=== PATIENT | female | born 1995 | race American Indian/Alaskan Native ===

== ENCOUNTER 2019-04-17 09:57 | Emergency (ER) | payer SELFPAY ==
[2019-04-17 10:13] VITALS: BP 144/75
[2019-04-17] MEDS ORDERED: BOOSTRIX IM ONE (11:09)
--- NOTE | 2019-04-17 11:12 | Emergency Department Report ---
- General Chief complaint: Skin/Abscess/Foreign Body Stated complaint: STEPPED IN GLASS Time Seen by Provider: 04/17/19 10:32 Source: patient, EMS Mode of arrival: Stretcher Limitations: No Limitations - History of Present Illness Initial comments: 23-year-old female presents to ED after stepping on a piece of glass. Patient states she and EMS were both unable to get the glass out of her right heel. Tetanus not up-to-date. complaint: foreign body (piece of glass) -: This morning Tetanus Up to Date: no Location: R foot Severity: mild Quality: sharp Improves with: immobilization Worsens with: palpation Associated symptoms: denies other symptoms - Related Data Previous Rx's Medication Instructions Recorded Last Taken Type Naproxen [Naprosyn] 500 mg PO BID #20 tablet 04/17/19 Unknown Rx Sulfamethoxazole/Trimethoprim 1 each PO BID #10 tablet 04/17/19 Unknown Rx [Bactrim DS TAB] Allergies Allergy/AdvReac Type Severity Reaction Status Date / Time amoxicillin Allergy Unknown Verified 04/17/19 10:13 coconut oil Allergy Unknown Verified 04/17/19 10:13 Abscess Boil HPI - HPI Chief Complaint: Skin/Abscess/Foreign Body Stated Complaint: STEPPED IN GLASS Time Seen by Provider: 04/17/19 10:32 Home Medications: Previous Rx's Medication Instructions Recorded Last Taken Type Naproxen [Naprosyn] 500 mg PO BID #20 tablet 04/17/19 Unknown Rx Sulfamethoxazole/Trimethoprim 1 each PO BID #10 tablet 04/17/19 Unknown Rx [Bactrim DS TAB] Allergies/Adverse Reactions: Allergies Allergy/AdvReac Type Severity Reaction Status Date / Time amoxicillin Allergy Unknown Verified 04/17/19 10:13 coconut oil Allergy Unknown Verified 04/17/19 10:13 ED Review of Systems ROS: Stated complaint: STEPPED IN GLASS Other details as noted in HPI Comment: All other systems reviewed and negative Skin: as per HPI ED Past Medical Hx - Past Medical History Previous Medical History?: No - Surgical History Past Surgical History?: No - Social History Smoking Status: Never Smoker Substance Use Type: None - Medications Home Medications: Home Medications Medication Instructions Recorded Confirmed Last Taken Type Naproxen [Naprosyn] 500 mg PO BID #20 tablet 04/17/19 Unknown Rx Sulfamethoxazole/Trimethoprim 1 each PO BID #10 tablet 04/17/19 Unknown Rx [Bactrim DS TAB] ED Physical Exam - General Limitations: No Limitations General appearance: alert, in no apparent distress, obese - Head Head exam: Present: atraumatic, normocephalic - Eye Eye exam: Present: normal appearance - ENT ENT exam: Present: mucous membranes moist - Neck Neck exam: Present: normal inspection - Respiratory Respiratory exam: Present: normal lung sounds bilaterally. Absent: respiratory distress - Cardiovascular Cardiovascular Exam: Present: regular rate, normal rhythm - GI/Abdominal GI/Abdominal exam: Absent: distended - Extremities Exam Extremities exam: Present: normal inspection - Neurological Exam Neurological exam: Present: alert, oriented X3 - Psychiatric Psychiatric exam: Present: normal affect, normal mood - Skin Skin exam: Present: warm, dry, other (small, pinpoint puncture in heel of right foot, tender, no active bleeding, no foreign body protruding from surface) ED Course Vital Signs 04/17/19 09:57 Temperature 98.5 F Pulse Rate 76 Respiratory 18 Rate Blood Pressure 144/75 [Left] O2 Sat by Pulse 98 Oximetry ED Medical Decision Making - Medical Decision Making Had discussion w/ pt regarding removal of glass. Advised against it as making incision for such a small piece of glass could lead to infection and worsening pain. Advised that body will eventually form callus and foreign body will work it's way to the surface. At that time, removal would be easier. Advised to keep area clean. Tetanus given here in ED. Rx given for bactrim for prophylaxis. Return precautions given. Critical care attestation.: If time is entered above; I have spent that time in minutes in the direct care of this critically ill patient, excluding procedure time. ED Disposition Clinical Impression: Foreign body in foot, right Disposition: DC-01 TO HOME OR SELFCARE Is pt being admited?: No Condition: Stable Instructions: Soft Tissue Foreign Body (ED) Prescriptions: Sulfamethoxazole/Trimethoprim [Bactrim DS TAB] 1 each PO BID #10 tablet Naproxen [Naprosyn] 500 mg PO BID #20 tablet Referrals: ROBIN RAINEY MD [Primary Care Provider] - 3-5 Days Forms: Work/School Release Form(ED) Time of Disposition: 11:11
== END 2019-04-17 12:10 | disposition home or self-care (01) ==
LOC: ED 09:57
DX: M79.5 Residual foreign body in soft tissue (principal); Z91.09 Other allergy status, other than to drugs and biological substances; Z88.1 Allergy status to other antibiotic agents
CPT/HCPCS: 90471; 90715; 99283

== ENCOUNTER 2019-07-24 21:59 | Emergency (ER) | payer SELFPAY ==
--- NOTE | 2019-07-24 22:33 | Emergency Department Report ---
Blank Doc - Documentation Documentation: 23-year-old female that presents with SOB and mid-back pain. This initial assessment/diagnostic orders/clinical plan/treatment(s) is/are subject to change based on patient's health status, clinical progression and re- assessment by fellow clinical providers in the ED. Further treatment and workup at subsequent clinical providers discretion. Patient/guardians urged not to elope from the ED as their condition may be serious if not clinically assessed and managed. Initial orders include: 1- Patient sent to [facility] for further evaluation and treatment 2- labs 3- CXR 4- EKG
[2019-07-24 22:37] VITALS: BP 151/92
[2019-07-24 23:17] LABS: Basophils # (Auto) 0.1 K/mm3 (0.0-0.1); Eosinophils # (Auto) 0.2 K/mm3 (0.0-0.4); Eosinophils % (Auto) 1.4 % (0.0-4.3); Hematocrit 38.7 % (30.3-42.9); Hemoglobin 12.8 gm/dl (10.1-14.3); Lymphocytes # (Auto) 3.2 K/mm3 (1.2-5.4); Lymphocytes % (Auto) 27.3 % (13.4-35.0); Mean Corpuscular HGB Conc 33 % (30-34); Mean Corpuscular Volume 86 fl (79-97); Monocytes # (Auto) 0.8 K/mm3 (0.0-0.8); Monocytes % (Auto) 7.3 % (0.0-7.3); Platelet Count 385 K/mm3 (140-440); Red Blood Count 4.51 M/mm3 (3.65-5.03); Red Cell Distribution Width 13.3 % (13.2-15.2)
[2019-07-24 23:28] LABS: INR 1.02 (0.87-1.13)
[2019-07-24 23:29] LABS: Partial Thromboplastin Time 34.4 Sec. (24.2-36.6)
[2019-07-24 23:34] LABS: BUN/Creatinine Ratio 12; Blood Urea Nitrogen 7 mg/dL (7-17); Calcium 8.9 mg/dL (8.4-10.2); Hemolysis Index 6
--- NOTE | 2019-07-25 00:47 | XRay Report ---
CHEST 2 VIEWS 0005 INDICATION / CLINICAL INFORMATION: Chest Pain COMPARISON: None available. FINDINGS: SUPPORT DEVICES: None. HEART / MEDIASTINUM: No significant abnormality. LUNGS / PLEURA: Artifact is seen for the patient's hair in the upper lung wagoner. Lung wagoner are hilario ar Trace. No pleural effusions are seen. No pneumothorax. ADDITIONAL FINDINGS: No significant additional findings. IMPRESSION: No significant acute abnormality Signer Name: Zhou Trimbel MD Signed: 07/25/2019 12:42 AM Workstation Name: [id number]
--- NOTE | 2019-07-25 00:55 | Emergency Department Report ---
Vomiting/Diarrhea - HPI Chief Complaint: Back Pain/Injury Stated Complaint: BACK PAIN & ANA Time Seen by Provider: 07/24/19 22:26 Severity: mild Nausea/Vomiting Severity: Mild Diarrhea Severity: Mild Symptoms: Yes Watery Diarrhea, Yes Able to Tolerate Fluids, No Bloody diarrhea, No Fever, No Recent Unusual Foods, No Recent Untreated Water, No Recent use of Antibiotics, No Family w/ Similar Symptoms, No Contacts w/ Similar Symptoms, No Rash, No Hematuria, No Recent URI Symptoms Other History: Patient is a 23-year-old female that comes to the ER today complaining of diarrhea for over a month. She has seen her primary care doctor who told her it was a virus and it would go away. However, today she continued to have diarrhea so her grandmother told her to come to the emergency room. She has been in the ER now for several hours and has had no nausea vomiting or diarrhea. She is ambulatory without fever and nontoxic. Patient denies any back pain chest pain or shortness of breath on my exam. ED Review of Systems ROS: Stated complaint: BACK PAIN & ANA Other details as noted in HPI Comment: All other systems reviewed and negative ED Past Medical Hx - Past Medical History Previous Medical History?: Yes Hx Asthma: Yes Additional medical history: OBESE - Surgical History Past Surgical History?: No - Social History Smoking Status: Never Smoker Substance Use Type: None - Medications Home Medications: Home Medications Medication Instructions Recorded Confirmed Last Taken Type Naproxen [Naprosyn] 500 mg PO BID #20 tablet 04/17/19 Unknown Rx Sulfamethoxazole/Trimethoprim 1 each PO BID #10 tablet 04/17/19 Unknown Rx [Bactrim DS TAB] Vomiting Diarrhea Exam - Exam General: Vital signs noted. No distress. Alert and acting appropriately. HEENT: Yes Moist Mucous Membranes, No Pharyngeal Erythema, No Pharyngeal Exudates, No Rhinorrhea Neck: No Adenopathy, No Rigidity Lungs: Yes Clear Lung Sounds, Yes Good Air Exchange, No Wheezes Heart exam: Regular: Yes, Murmur: No, Tachycardia: No Abdomen: Tenderness: No, Peritoneal Signs: No, Distention: No Skin exam: Rash: No, Edema: No Neurologic: Alert and oriented, no deficits. Musculoskeletal: Unremarkable. ED Course Vital Signs 07/24/19 22:33 Temperature 98.1 F Pulse Rate 58 L Respiratory 20 Rate Blood Pressure 151/92 O2 Sat by Pulse 96 Oximetry ED Medical Decision Making - Lab Data Result diagrams: 07/24/19 22:46 07/24/19 22:46 - Radiology Data Radiology results: report reviewed, image reviewed - Medical Decision Making Labs 07/24/19 07/24/19 07/24/19 22:46 22:46 22:46 WBC 11.7 H RBC 4.51 Hgb 12.8 Hct 38.7 MCV 86 MCH 28 MCHC 33 RDW 13.3 Plt Count 385 Lymph % (Auto) 27.3 [place] % (Auto) 7.3 Eos % (Auto) 1.4 Baso % (Auto) 1.0 Lymph # 3.2 [place] # 0.8 Eos # 0.2 Baso # 0.1 Seg Neutrophils % 63.0 Seg Neutrophils # 7.4 PT 13.1 INR 1.02 APTT 34.4 D-Dimer 138.17 Sodium 139 Potassium 3.7 Chloride 102.0 Carbon Dioxide 26 Anion Gap 15 BUN 7 Creatinine 0.6 L Estimated GFR > 60 BUN/Creatinine Ratio 12 Glucose 99 Calcium 8.9 Troponin T < 0.010 HCG, Qual 07/24/19 22:46 WBC RBC Hgb Hct MCV MCH MCHC RDW Plt Count Lymph % (Auto) [place] % (Auto) Eos % (Auto) Baso % (Auto) Lymph # [place] # Eos # Baso # Seg Neutrophils % Seg Neutrophils # PT INR APTT D-Dimer Sodium Potassium Chloride Carbon Dioxide Anion Gap BUN Creatinine Estimated GFR BUN/Creatinine Ratio Glucose Calcium Troponin T HCG, Qual Negative Vital Signs 07/24/19 22:33 Temperature 98.1 F Pulse Rate 58 L Respiratory 20 Rate Blood Pressure 151/92 O2 Sat by Pulse 96 Oximetry LABS REVIEWED WITH PT PREG NEG VS ARE NORMAL WITHOUT TACHYCARDIA OR HYPOTENSION PT'S DIARRHEA IS NOW OVER A MONTH IN CHRONICITY I'VE DISCUSSED WITH HER SEEING GI MD SHE VERBALIZES UNDERSTANDING AMBULATORY NONTOXIC TAKING PO NO FEVER DC HOME WITH FAMILY - Differential Diagnosis A/C DIARRHEA Critical care attestation.: If time is entered above; I have spent that time in minutes in the direct care of this critically ill patient, excluding procedure time. ED Disposition Clinical Impression: Diarrhea Disposition: DC-01 TO HOME OR SELFCARE Is pt being admited?: No Does the pt Need Aspirin: No Condition: Stable Instructions: Loperamide (By mouth), Acute Diarrhea (ED), Chronic Diarrhea (ED) Additional Instructions: STAY WELL HYDRATED CALL GI MD IN AM FOR APPOINTMENT REFERRAL BELOW Referrals: CARLI DAVIS MD [Staff Physician] - 3-5 Days THEA NORRIS MD [Staff Physician] - 3-5 Days GUY RUSSELL MD [Staff Physician] - 3-5 Days Time of Disposition: 00:54
--- NOTE | 2019-07-25 01:12 | Emergency Department Report ---
Vomiting/Diarrhea - HPI Chief Complaint: Back Pain/Injury Stated Complaint: BACK PAIN & ANA Time Seen by Provider: 07/24/19 22:26 Duration: 3 Days Symptoms: No Contacts w/ Similar Symptoms, No Rash, No Hematuria, No Recent URI Symptoms Other History: 23 YO AA FEMALE WITH SOB AND WHEEZING OFF AND ON FOR A COUPLE DAYS. ED Review of Systems ROS: Stated complaint: BACK PAIN & ANA Other details as noted in HPI Comment: All other systems reviewed and negative ED Past Medical Hx - Past Medical History Previous Medical History?: Yes Hx Asthma: Yes Additional medical history: OBESE - Surgical History Past Surgical History?: No - Family History Family history: no significant - Social History Smoking Status: Never Smoker Substance Use Type: None - Medications Home Medications: Home Medications Medication Instructions Recorded Confirmed Last Taken Type Albuterol Sulfate [Proair 90 mcg IH QID PRN #1 aer.pow.ba 07/25/19 Unknown Rx Respiclick] Cetirizine HCl [ZyrTEC] 10 mg PO DAILY #30 capsule 07/25/19 Unknown Rx Fluticasone [Flonase] 1 spray NS QDAY #1 bottle 07/25/19 Unknown Rx predniSONE [Deltasone] 20 mg PO DAILY #5 tablet 07/25/19 Unknown Rx Vomiting Diarrhea Exam - Exam General: Vital signs noted. No distress. Alert and acting appropriately. HEENT: Yes Moist Mucous Membranes, No Pharyngeal Erythema, No Pharyngeal Exudates, No Rhinorrhea, No Conjuctival Injection, No Frontal Tenderness, No Maxillary Tenderness Neck: No Adenopathy, No Rigidity Lungs: Yes Clear Lung Sounds, Yes Good Air Exchange, Yes Wheezes, No Stridor, No Cough, No Nasal Flaring Heart exam: Regular: Yes Abdomen: Tenderness: No Skin exam: Rash: No Neurologic: Alert and oriented, no deficits. Musculoskeletal: Unremarkable. ED Course Vital Signs 07/24/19 22:33 Temperature 98.1 F Pulse Rate 58 L Respiratory 20 Rate Blood Pressure 151/92 O2 Sat by Pulse 96 Oximetry ED Medical Decision Making - Lab Data Result diagrams: 07/24/19 22:46 07/24/19 22:46 - Radiology Data Radiology results: report reviewed, image reviewed - Medical Decision Making Labs 07/24/19 07/24/19 07/24/19 22:46 22:46 22:46 WBC 11.7 H RBC 4.51 Hgb 12.8 Hct 38.7 MCV 86 MCH 28 MCHC 33 RDW 13.3 Plt Count 385 Lymph % (Auto) 27.3 [place] % (Auto) 7.3 Eos % (Auto) 1.4 Baso % (Auto) 1.0 Lymph # 3.2 [place] # 0.8 Eos # 0.2 Baso # 0.1 Seg Neutrophils % 63.0 Seg Neutrophils # 7.4 PT 13.1 INR 1.02 APTT 34.4 D-Dimer 138.17 Sodium 139 Potassium 3.7 Chloride 102.0 Carbon Dioxide 26 Anion Gap 15 BUN 7 Creatinine 0.6 L Estimated GFR > 60 BUN/Creatinine Ratio 12 Glucose 99 Calcium 8.9 Troponin T < 0.010 HCG, Qual 07/24/19 22:46 WBC RBC Hgb Hct MCV MCH MCHC RDW Plt Count Lymph % (Auto) [place] % (Auto) Eos % (Auto) Baso % (Auto) Lymph # [place] # Eos # Baso # Seg Neutrophils % Seg Neutrophils # PT INR APTT D-Dimer Sodium Potassium Chloride Carbon Dioxide Anion Gap BUN Creatinine Estimated GFR BUN/Creatinine Ratio Glucose Calcium Troponin T HCG, Qual Negative Vital Signs 07/24/19 22:33 Temperature 98.1 F Pulse Rate 58 L Respiratory 20 Rate Blood Pressure 151/92 O2 Sat by Pulse 96 Oximetry DUONEB AND PREDNISONE IN ER NO FEVER NO SPUTUM XRAY NEG DC HOME WITH DC PLAN OF CARE AND PCP FOLLOW UP - Differential Diagnosis ASTHMA AE W OR WO INFECTION Critical care attestation.: If time is entered above; I have spent that time in minutes in the direct care of this critically ill patient, excluding procedure time. ED Disposition Clinical Impression: Asthma with acute exacerbation Disposition: DC-01 TO HOME OR SELFCARE Is pt being admited?: No Does the pt Need Aspirin: No Condition: Stable Instructions: Asthma (ED) Additional Instructions: STAY WELL HYDRATED MEDS ORDERED TODAY Prescriptions: predniSONE [Deltasone] 20 mg PO DAILY #5 tablet Fluticasone [Flonase] 1 spray NS QDAY #1 bottle Albuterol Sulfate [Proair Respiclick] 90 mcg IH QID PRN #1 aer.pow.ba PRN Reason: Wheezing Cetirizine HCl [ZyrTEC] 10 mg PO DAILY #30 capsule Referrals: LINDA ESCOBAR MD [Staff Physician] - 3-5 Days Time of Disposition: 01:24
[2019-07-25] MEDS ORDERED: DELTASONE PO ONE (01:22)
[2019-07-25] MEDS ORDERED: PROVENTIL IH ONE (01:22)
== END 2019-07-25 02:30 | disposition home or self-care (01) ==
LOC: ED 21:59
DX: J45.901 Unspecified asthma with (acute) exacerbation (principal); Z88.1 Allergy status to other antibiotic agents; Z91.018 Allergy to other foods; Z79.899 Other long term (current) drug therapy
CPT/HCPCS: 36415; 71046; 80048; 84484; 84703; 85025; 85379; 85610; 85730; 94640; 99284; J7512

== ENCOUNTER 2019-10-15 13:12 | Emergency (ER) | payer SELFPAY ==
--- NOTE | 2019-10-15 13:53 | Event Note ---
ED Screening Note Date of service: 10/15/19 Time: 13:52 ED Screening Note: 23 y o female presents with throat pain with intermittent coughing causing cp. pmh: asthma 10/02/19 This initial assessment/diagnostic orders/clinical plan/treatment(s) is/are subject to change based on patients health status, clinical progression and re- assessment by fellow clinical providers in the ED. Further treatment and workup at subsequent clinical providers discretion. Patient/guardian urged not to elope from the ED as their condition may be serious if not clinically assessed and managed. Initial orders include: rapid strep/ cxr
--- NOTE | 2019-10-15 16:37 | XRay Report ---
CHEST PA AND LATERAL VIEWS INDICATION: cough,fever. COMPARISON: 07/25/2019. FINDINGS: Support devices: None. Heart: Within normal limits. Lungs/Pleura: No acute pulmonary or pleural findings. IMPRESSION: 1. No significant abnormality. Signer Name: Macario Roy MD Signed: 10/15/2019 4:33 PM Workstation Name: [id number]
--- NOTE | 2019-10-15 17:05 | Emergency Department Report ---
ED General Adult HPI - General Chief complaint: Upper Respiratory Infection Stated complaint: FLU SX Time Seen by Provider: 10/15/19 16:22 Source: patient Mode of arrival: Ambulatory Limitations: No Limitations - History of Present Illness Initial comments: [id number] -[place] female patient with history of asthma presents with complaints of cough, congestion, and sore throat for the past 5 days. She admits to intermittent headaches, body aches, and subjective fever and chills. Patient states cough is productive of green and brown-appearing mucus. She denies any history of pneumonia. She sates she had increased use of her albuterol inhaler without relief. She denies any hemoptysis, pain/swelling, history of DVT/PE, oral contraceptives, or recent long travel. states symptoms are worsening despite using OTC medications for cold and flu. -: Sudden - Related Data Previous Rx's Medication Instructions Recorded Last Taken Type Albuterol Sulfate [Proair 90 mcg IH QID PRN #1 aer.pow.ba 07/25/19 Unknown Rx Respiclick] Cetirizine HCl [ZyrTEC] 10 mg PO DAILY #30 capsule 07/25/19 Unknown Rx Fluticasone [Flonase] 1 spray NS QDAY #1 bottle 07/25/19 Unknown Rx predniSONE [Deltasone] 20 mg PO DAILY #5 tablet 07/25/19 Unknown Rx ALBUTEROL Inhaler (OR & NICU) 2 puff IH Q4H PRN #8.5 gram 10/15/19 Unknown Rx [ProAir HFA Inhaler] Azithromycin [Zithromax Z-AUSTIN] 0 mg PO DAILY 5 Days #6 tab 10/15/19 Unknown Rx Benzonatate 200 mg PO TID PRN #30 capsule 10/15/19 Unknown Rx Prednisone [predniSONE 10 mg 10 mg PO .TAPER #1 tab.ds.pk 10/15/19 Unknown Rx (6-Day Pack, 21 Tabs)] Allergies Allergy/AdvReac Type Severity Reaction Status Date / Time amoxicillin Allergy Unknown Verified 04/17/19 10:13 coconut oil Allergy Unknown Verified 04/17/19 10:13 ED Review of Systems ROS: Stated complaint: FLU SX Other details as noted in HPI Constitutional: chills, fever, malaise. denies: diaphoresis ENT: throat pain. denies: ear pain Respiratory: cough. denies: shortness of breath Cardiovascular: chest pain (with cough only) Endocrine: no symptoms reported Gastrointestinal: denies: abdominal pain, nausea, vomiting, diarrhea Musculoskeletal: denies: back pain Skin: denies: rash, lesions Neurological: headache (9's current headache). denies: weakness, paresthesias ED Past Medical Hx - Past Medical History Previous Medical History?: Yes Hx Asthma: Yes Additional medical history: OBESE - Surgical History Past Surgical History?: No - Social History Smoking Status: Never Smoker Substance Use Type: None - Medications Home Medications: Home Medications Medication Instructions Recorded Confirmed Last Taken Type Albuterol Sulfate [Proair 90 mcg IH QID PRN #1 aer.pow.ba 07/25/19 Unknown Rx Respiclick] Cetirizine HCl [ZyrTEC] 10 mg PO DAILY #30 capsule 07/25/19 Unknown Rx Fluticasone [Flonase] 1 spray NS QDAY #1 bottle 07/25/19 Unknown Rx predniSONE [Deltasone] 20 mg PO DAILY #5 tablet 07/25/19 Unknown Rx ALBUTEROL Inhaler (OR & NICU) 2 puff IH Q4H PRN #8.5 gram 10/15/19 Unknown Rx [ProAir HFA Inhaler] Azithromycin [Zithromax Z-[place]] 0 mg PO DAILY 5 Days #6 tab 10/15/19 Unknown Rx Benzonatate 200 mg PO TID PRN #30 capsule 10/15/19 Unknown Rx Prednisone [predniSONE 10 mg 10 mg PO .TAPER #1 tab.ds.pk 10/15/19 Unknown Rx (6-Day Pack, 21 Tabs)] ED Physical Exam - General Limitations: No Limitations General appearance: alert, in no apparent distress - Head Head exam: Present: atraumatic, normocephalic - Eye Eye exam: Present: normal appearance - ENT ENT exam: Present: normal orophraynx, mucous membranes moist - Neck Neck exam: Present: normal inspection. Absent: tenderness, lymphadenopathy - Respiratory Respiratory exam: Present: wheezes, rhonchi, chest wall tenderness. Absent: respiratory distress, rales - Cardiovascular Cardiovascular Exam: Present: regular rate, normal rhythm. Absent: systolic murmur, diastolic murmur, rubs, gallop - GI/Abdominal GI/Abdominal exam: Present: soft, normal bowel sounds - Extremities Exam Extremities exam: Present: normal inspection. Absent: pedal edema, calf tenderness - Back Exam Back exam: Present: normal inspection - Neurological Exam Neurological exam: Present: alert, oriented X3 - Psychiatric Psychiatric exam: Present: normal affect, normal mood - Skin Skin exam: Present: warm, dry, intact, normal color. Absent: rash ED Course Vital Signs 10/15/19 13:51 Temperature 99.1 F Pulse Rate 89 Respiratory 18 Rate Blood Pressure 130/81 O2 Sat by Pulse 100 Oximetry ED Medical Decision Making - Radiology Data Radiology results: report reviewed CHEST PA AND LATERAL VIEWS INDICATION: cough,fever. COMPARISON: 07/25/2019. FINDINGS: Support devices: None. Heart: Within normal limits. Lungs/Pleura: No acute pulmonary or pleural findings. IMPRESSION: 1. No significant abnormality. - Medical Decision Making A 3-year-old female patient here with complaints of cough, body aches, and sore throat for the past 5 days. States symptoms are worsening despite OTC medications. Patient has history of asthma and states her inhaler does not seem to be controlling her symptoms. She denies any current shortness of breath. Wheezing noted on exampatient offered nebulizer treatment and declined. Chest x-ray is negative for pneumonia. Will discharge home with treatment for asthmatic bronchitis. Recommend follow-up with primary care within 3-5 days. Discussed very strict return precautions in detail with patient who states understanding. Critical care attestation.: If time is entered above; I have spent that time in minutes in the direct care of this critically ill patient, excluding procedure time. ED Disposition Clinical Impression: Asthmatic bronchitis Qualifiers: Asthma severity: mild Asthma persistence: intermittent Asthma complication type: with acute exacerbation Qualified Code(s): J45.21 - Mild intermittent asthma with (acute) exacerbation Disposition: - TO HOME OR SELFCARE Is pt being admited?: No Condition: Stable Instructions: Acute Bronchitis (ED) Prescriptions: Benzonatate 200 mg PO TID PRN #30 capsule PRN Reason: Cough Prednisone [predniSONE 10 mg (6-Day Pack, 21 Tabs)] 10 mg PO .TAPER #1 tab.ds.pk ALBUTEROL Inhaler (OR & NICU) [ProAir HFA Inhaler] 2 puff IH Q4H PRN #8.5 gram PRN Reason: Wheezing Azithromycin [Zithromax Z-AUSTIN] 0 mg PO DAILY 5 Days #6 tab
[2019-10-15 17:44] VITALS: BP 128/81
== END 2019-10-15 17:41 | disposition home or self-care (01) ==
LOC: ED 13:12
DX: J45.21 Mild intermittent asthma with (acute) exacerbation (principal); Z79.899 Other long term (current) drug therapy; Z88.0 Allergy status to penicillin; Z91.09 Other allergy status, other than to drugs and biological substances
CPT/HCPCS: 71046; 87116; 87430

== ENCOUNTER 2021-11-07 19:17 | Emergency (ER) | payer SELFPAY ==
[2021-11-08 02:52] VITALS: BP 151/104
[2021-11-08] MEDS ORDERED: predniSONE 20 MG TAB PO ONE (03:11)
[2021-11-08] MEDS ORDERED: IPRATROPIUM/ALBUTEROL SULFATE 3 ML AMPUL.NEB IH ONE (03:11)
--- NOTE | 2021-11-08 03:56 | XRay Report ---
CHEST 2 VIEWS INDICATION / CLINICAL INFORMATION: Dyspnea, chest tightness. COMPARISON: 10/15/2019 FINDINGS: SUPPORT DEVICES: None. HEART / MEDIASTINUM: No significant abnormality. LUNGS / PLEURA: No significant pulmonary or pleural abnormality. No pneumothorax. ADDITIONAL FINDINGS: No significant additional findings. IMPRESSION: 1. No acute findings. Signer Name: Ranjan Carver DO Signed: 11/08/2021 3:51 AM Workstation Name: [id number]
--- NOTE | 2021-11-08 07:04 | Emergency Department Report ---
- General Chief Complaint: Chest Pain Stated Complaint: CHEST PAIN/SOB Source: patient Mode of arrival: Ambulatory Limitations: No Limitations - History of Present Illness Initial Comments: Patient is a 25-year-old -[place] female with a history of asthma who presented to the ED with complaint of acute onset persistent nasal and sinus congestion, persistent frontal sinus pressure and headache, sore throat, diffuse body aches and pains, persistent dry cough with wheezing and shortness of breath and pleuritic chest pain for the last 1 week, worse in the last 3 days. Patient states that she ran out of her inhaler a while ago and she was not able to use anything for shortness of breath. Patient denies dizziness, syncope, fever, chills, nausea and vomiting, diarrhea, abdominal pain, neck pain, dysuria, urinary frequency and urgency or vaginal discharge and vaginal bleeding. MD Complaint: cough, rhinorrhea, nasal congestion, sinus pain -: Sudden, days(s) (3) Severity: moderate Severity scale (0 -10): 6 Quality: aching Consistency: constant Improves With: nothing Worsens With: nothing Context: sick contacts Associated Symptoms: denies other symptoms, myalgias, headache, rhinorrhea, nasal congestion, sore throat, cough. denies: fever, chills, diaphoresis, chest pain, shortness of breath, abdominal pain, nausea, vomiting, diarrhea, rash, right sweats, weight loss, ear pain Treatments Prior to Arrival: "cold medicine" - Related Data Previous Rx's Medication Instructions Recorded Last Taken Type Fluticasone [Flonase] 1 spray NS QDAY #1 bottle 07/25/19 Unknown Rx predniSONE [Deltasone] 20 mg PO DAILY #5 tablet 07/25/19 Unknown Rx Albuterol Mdi (or & Nicu Only) 2 puff IH Q4H PRN #8.5 gram 10/15/19 Unknown Rx [ProAir HFA Inhaler] Albuterol Sulfate [Proair 90 mcg IH QID PRN #1 aer.pow.ba 11/08/21 Unknown Rx Respiclick] Azithromycin [Zithromax Z-AUSTIN] 0 mg PO DAILY 5 Days #6 tab 11/08/21 Unknown Rx Benzonatate 200 mg PO TID PRN #30 capsule 11/08/21 Unknown Rx Cetirizine HCl [ZyrTEC 10mg cap] 10 mg PO DAILY #30 capsule 11/08/21 Unknown Rx Ibuprofen [Motrin] 800 mg PO Q8HR PRN #30 tablet 11/08/21 Unknown Rx Prednisone [predniSONE 10 mg 10 mg PO .TAPER #1 tab.ds.pk 11/08/21 Unknown Rx (6-Day Pack, 21 Tabs)] Allergies Allergy/AdvReac Type Severity Reaction Status Date / Time amoxicillin Allergy Unknown Verified 11/07/21 23:12 coconut oil Allergy Unknown Verified 11/07/21 23:12 ED Review of Systems ROS: Stated complaint: CHEST PAIN/SOB Other details as noted in HPI Constitutional: denies: chills, fever Eyes: denies: eye pain, eye discharge, vision change ENT: throat pain, congestion, other (Frontal sinus pressure). denies: ear pain Respiratory: cough. denies: shortness of breath, wheezing Cardiovascular: denies: chest pain, palpitations Endocrine: no symptoms reported Gastrointestinal: denies: abdominal pain, nausea, vomiting, diarrhea Genitourinary: denies: urgency, dysuria, discharge Musculoskeletal: back pain, arthralgia, myalgia. denies: joint swelling Skin: denies: rash, lesions Neurological: denies: headache, weakness, paresthesias Psychiatric: denies: anxiety, depression Hematological/Lymphatic: denies: easy bleeding, easy bruising ED Past Medical Hx - Past Medical History Hx Asthma: Yes Additional medical history: OBESE - Surgical History Past Surgical History?: No - Social History Smoking Status: Never Smoker Substance Use Type: None - Medications Home Medications: Home Medications Medication Instructions Recorded Confirmed Last Taken Type Fluticasone [Flonase] 1 spray NS QDAY #1 bottle 07/25/19 Unknown Rx predniSONE [Deltasone] 20 mg PO DAILY #5 tablet 07/25/19 Unknown Rx Albuterol Mdi (or & Nicu Only) 2 puff IH Q4H PRN #8.5 gram 10/15/19 Unknown Rx [ProAir HFA Inhaler] Albuterol Sulfate [Proair 90 mcg IH QID PRN #1 aer.pow.ba 11/08/21 Unknown Rx Respiclick] Azithromycin [Zithromax Z-AUSTIN] 0 mg PO DAILY 5 Days #6 tab 11/08/21 Unknown Rx Benzonatate 200 mg PO TID PRN #30 capsule 11/08/21 Unknown Rx Cetirizine HCl [ZyrTEC 10mg cap] 10 mg PO DAILY #30 capsule 11/08/21 Unknown Rx Ibuprofen [Motrin] 800 mg PO Q8HR PRN #30 tablet 11/08/21 Unknown Rx Prednisone [predniSONE 10 mg 10 mg PO .TAPER #1 tab.ds.pk 11/08/21 Unknown Rx (6-Day Pack, 21 Tabs)] ED Physical Exam - General Limitations: No Limitations General appearance: alert, in no apparent distress - Head Head exam: Present: atraumatic, normocephalic, normal inspection - Eye Eye exam: Present: normal appearance, PERRL, EOMI Pupils: Present: normal accommodation - ENT ENT exam: Present: normal orophraynx, mucous membranes moist, TM's normal bilaterally, normal external ear exam, other (Grossly congested nasal passages; palpable frontal sinus tenderness) - Neck Neck exam: Present: normal inspection, full ROM - Respiratory Respiratory exam: Present: wheezes (Mildly diffuse coarse wheezes throughout). Absent: respiratory distress, rales, rhonchi, stridor, chest wall tenderness, accessory muscle use, decreased breath sounds, prolonged expiratory - Cardiovascular Cardiovascular Exam: Present: regular rate, normal rhythm, normal heart sounds. Absent: systolic murmur, diastolic murmur, rubs, gallop - GI/Abdominal GI/Abdominal exam: Present: soft, normal bowel sounds. Absent: tenderness, guarding, rebound, hyperactive bowel sounds, hypoactive bowel sounds, organomegaly - Extremities Exam Extremities exam: Present: normal inspection, full ROM, normal capillary refill - Back Exam Back exam: Present: normal inspection, full ROM. Absent: tenderness, CVA tenderness (R), CVA tenderness (L), muscle spasm, paraspinal tenderness, vertebral tenderness - Neurological Exam Neurological exam: Present: alert, oriented X3, CN II-XII intact, normal gait, reflexes normal - Psychiatric Psychiatric exam: Present: normal affect, normal mood - Skin Skin exam: Present: warm, dry, intact, normal color. Absent: rash ED Course Vital Signs 11/07/21 23:10 Temperature 98.3 F Pulse Rate 79 Respiratory 17 Rate Blood Pressure 151/104 O2 Sat by Pulse 99 Oximetry ED Medical Decision Making - Radiology Data Radiology results: report reviewed, image reviewed [facility] [address] [place] [address] XRay Report Signed Patient: TRINITY MARTINEZ MR#: [id number] : 1995 Acct:[id number] Age/Sex: 25 / F ADM Date: 11/07/21 Loc: ED Attending Dr: Ordering Physician: CLAY LUJAN Date of Service: 11/08/21 Procedure(s): XR chest routine 2V Accession Number(s): [id number] cc: CLAY LUJAN Fluoro Time In Minutes: CHEST 2 VIEWS INDICATION / CLINICAL INFORMATION: Dyspnea, chest tightness. COMPARISON: 10/15/2019 FINDINGS: SUPPORT DEVICES: None. HEART / MEDIASTINUM: No significant abnormality. LUNGS / PLEURA: No significant pulmonary or pleural abnormality. No pneumothorax. ADDITIONAL FINDINGS: No significant additional findings. IMPRESSION: 1. No acute findings. Signer Name: Ranjan Carver DO Signed: 11/08/2021 3:51 AM Workstation Name: [id number] Transcribed By: CORNELIA Dictated By: RANJAN CARVER DO Electronically Authenticated By: RANJAN CARVER DO Signed Date/Time: 11/08/21350 DD/ 0 TD/TT: Print - Medical Decision Making This is a 25-year-old -Danish female with a history of asthma who presented to the ED with complaint of acute onset persistent nasal and sinus congestion, persistent frontal sinus pressure and headache, sore throat, diffuse body aches and pains, persistent dry cough with wheezing and shortness of breath and pleuritic chest pain for the last 1 week, worse in the last 3 days. Patient states that she ran out of her inhaler a while ago and she was not able to use anything for shortness of breath. In the ED, patient is alert and oriented x3 and is not in any distress. Patient was treated in the ED with steroid and DuoNeb. Chest x-ray showed no acute cardiopulmonary abnormalities or pneumonitis. Lab test results were reviewed and are all nonactionable. EKG shows normal sinus rhythm with no ST or T wave abnormalities. On reevaluation, patient wheezing resolved, patient felt better and will discharge home on medications. Patient was advised to follow-up with her primary care physician in 5 to 7 days for reevaluation or return to the ED immediately if symptoms get worse. - Differential Diagnosis Asthma; bronchitis; sinusitis; URI; pharyngitis; pneumonia; Critical care attestation.: If time is entered above; I have spent that time in minutes in the direct care of this critically ill patient, excluding procedure time. ED Disposition Clinical Impression: Acute bronchitis with asthma with acute exacerbation, Acute upper respiratory infection Acute sinusitis, unspecified Qualifiers: Sinusitis location: frontal Recurrence: non-recurrent Qualified Code(s): J01.10 - Acute frontal sinusitis, unspecified Disposition: HOME / SELF CARE / HOMELESS Is pt being admited?: No Does the pt Need Aspirin: No Condition: Stable Instructions: Upper Respiratory Infection, Adult, [id number], Sinusitis, Adult, [id number], Cough, Adult, [id number], Acute Bronchitis, Adult, [id number], Asthma, Adult, [id number] Additional Instructions: Chest x-ray showed no acute cardiopulmonary abnormalities or pneumonitis. Therefore take medication with food, drink plenty of fluids and follow-up with your primary care physician in 7 to 10 days for reevaluation. Return to the ED immediately if symptoms get worse. Prescriptions: Benzonatate 200 mg PO TID PRN #30 capsule PRN Reason: Cough Ibuprofen [Motrin] 800 mg PO Q8HR PRN #30 tablet PRN Reason: pain or fever Prednisone [predniSONE 10 mg (6-Day Pack, 21 Tabs)] 10 mg PO .TAPER #1 tab.ds.pk Albuterol Sulfate [Proair Respiclick] 90 mcg IH QID PRN #1 aer.pow.ba PRN Reason: Wheezing Azithromycin [Zithromax Z-AUSTIN] 0 mg PO DAILY 5 Days #6 tab Cetirizine HCl [ZyrTEC 10mg cap] 10 mg PO DAILY #30 capsule Referrals: [facility] [Provider Group] - 7-10 days Time of Disposition: 07:05 Print Language: SYRIAN
--- NOTE | 2021-11-09 09:39 | Electrocardiograph Report ---
[facility] Test Date: 2021-11-08 Test Time: 03:00:36 Pat Name: TRINITY MARTINEZ Department: Room: Gender: F Procurement Professional: NURSE : 1995 Requested By: MAL PARADA Order Number: [id number] Reading MD: Truman Ramos Measurements Intervals [place] Rate: 64 P: 32 GA: 165 QRS: 22 QRSD: 70 T: 2 QT: 405 QTc: 419 Interpretive Statements Sinus rhythm No previous ECG available for comparison Electronically Signed On 11-09-2021 9:38:27 EST by Truman Ramos
== END 2021-11-08 08:23 | disposition home or self-care (01) ==
LOC: ED 19:17
DX: J45.901 Unspecified asthma with (acute) exacerbation (principal); J06.9 Acute upper respiratory infection, unspecified; J01.10 Acute frontal sinusitis, unspecified
CPT/HCPCS: 36415; 71046; 84484; 93005; 99284; J7512